=== PATIENT | male | born 1970 | race Caucasian/White ===

== ENCOUNTER 2016-09-27 14:42 | Emergency (ER) | payer MEDICARE, OTHER ==
[~2016-09-27] VITALS: Ht 165.1 cm; Wt 82.0 kg
[~2016-09-27 14:42] MED LIST: AZIT250T2 PO; BUPR300T51 PO; CEPHALEXIN PO; CMBV14.7IN IH; GABA300T24 PO; GFN600TCR PO; LOP50 PO; OMEP40CA25 PO; OXYBUTYNIN PO; PRZ2C PO; SYMINH IH; TOP25 PO; [UNRECOGNIZED DRUG - CODE] PO
[2016-09-27 14:47] VITALS: BP 146/107; PULSE 71; RESP 16; O2SAT 98
[2016-09-27] MEDS ORDERED: PANT40TA2 PO (15:21)
[2016-09-27] MEDS ORDERED: PROZ20 PO (15:21)
[2016-09-27] MEDS ORDERED: OXYB15TA PO (15:21)
[2016-09-27] MEDS ORDERED: PROP40TA5 PO (15:21)
[2016-09-27] MEDS ORDERED: [UNRECOGNIZED DRUG - OTHER] (15:21)
[2016-09-27] MEDS ORDERED: ALBU8.5H2 INHALATION (15:21)
--- NOTE | 2016-09-27 15:31 | ED.REPORT ---
HPI-Extremity Problem Upper Date of Service Sep 27, 2016 ED Provider: Luana Vega History of Present Illness: left elbow swollen for 3 weeks. denies trauma. rell is primary care in [facility] and I told him it was infected. went to [facility] and given augmentin.finished. feels increase in swelling today. right hand dominant Nursing Notes Stated Complaint: LEFT ELBOW INFECTED BURSITIS Chief Complaint: General Complaint Nursing Notes Reviewed: Yes Allergies: Coded Allergies: MUSHROOM (Verified Allergy, Severe, Anaphylaxis, 05/16/12) Shellfish (Verified Allergy, Severe, Anaphylaxis, 05/16/12) Scheduled Albuterol HFA (Proair HFA) 8.5 Gm Hfa.aer.ad 2 PUFFS INHALATION Q4H Bupropion-Expunged Drug, Do Not Renew! (Bupropion XL-Expunged Drug, Do Not Renew !) 300 Mg Tab.sr.24h 300 MG PO DAILY Fluoxetine (Prozac) 20 Mg Capsule 20 MG PO DAILY Oxybutynin Chloride ER (Oxybutynin Chloride ER) 15 Mg Tab.er.24 15 MG PO DAILY Pantoprazole DR (Protonix) 40 Mg Tablet 40 MG PO BID Propranolol HCl (Propranolol HCl) 40 Mg Tablet 40 MG PO BID Miscellaneous Medications ([medicinal cannibis]) Unknown Dose General Time Seen by MD: 15:30 Chief Complaint Elbow injury left Hx Obtained From: Patient Onset Occurred: More than a week ago... 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 bladder times 2 Smoking History Former Smoker (quit in 2001) Social History drinks beer Alcohol Use: 3-5 per day Drug Use: Denies drug use, THC Occupation lives with family, no work or school 09/27/2016 Ambulatory Status Independent Review of Systems Basic Review of Systems Eyes: Vision NL, No discharge : No dysuria, No frequency Psychiatric: Normal thought content Physical Exam Initial Vital Signs Vital Signs (First) Date Time Temp Pulse Resp B/P Pulse Ox O2 Delivery O2 Flow Rate FiO2 09/27/16 14:47 37.0 71 16 146/107 98 Room Air Initial VS: Reviewed, Vital signs abnormal General/Constitutional: Well-developed, Well-nourished Abdomen / GI: Soft, Non-tender, No guarding, No rebound, No distention Psychiatric: Mood/affect normal, Behavior normal, Normal thought content General/Constitutional: Awake, Alert, No acute distress, Well appearing, Well developed, Well hydrated Respiratory / Chest: Atraumatic, Breath sounds NL, Breath sounds = bilat, No respiratory distress Cardiovascular: Heart rate NL, Regular rhythm, Heart sounds NL, No gallop left arm has full range of motion with diffuse swelling fron elbow down. No erthyma or increased warmth. Interpretation & Diagnostics Interpretation & Diagnostics: us verbal report is negative for clot Lab Results Interpretation Result Diagram: 09/27/16 1615 09/27/16 1615 Test 09/27/16 16:15 White Blood Count 8.3th/mm3 (3.8-10.1) Red Blood Count 4.90mil/mm3 (4.40-5.80) Hemoglobin 15.8g/dL (13.8-17.2) Hematocrit 45.7% (41.0-50.0) Mean Corpuscular Volume 93.3fL (81-100) Mean Corpuscular Hemoglobin 32.2pg (27.0-35.0) Mean Corpuscular Hemoglobin Concent 34.6% (32.0-37.0) Red Cell Distribution Width 12.7% (12.3-15.4) Platelet Count 255bil/L (150-400) Neutrophils (%) (Auto) 52.4% (40-74) Lymphocytes (%) (Auto) 33.9% (14-46) Monocytes (%) (Auto) 10.7% (4-12) Eosinophils (%) (Auto) 2.4% (0-5) Basophils (%) (Auto) 0.4% (0-3) Erythrocyte Sedimentation Rate 1mm/hr (0-15) Sodium Level 136mEq/L (134-144) Potassium Level 4.0mEq/L (3.5-5.2) Chloride Level 100mEq/L (97-108) Carbon Dioxide Level 20mmol/L (18-29) Blood Urea Nitrogen 12mg/dL (6-24) Creatinine 0.88mg/dL (0.76-1.27) Estimat Glomerular Filtration Rate 99mL/min (>59) Glucose Level 111mg/dL (60-99) Calcium Level 9.7mg/dL (8.5-10.1) Total Bilirubin 0.7mg/dL (0.0-1.2) Aspartate Amino Transf (AST/SGOT) 33U/L (0-50) Alanine Aminotransferase (ALT/SGPT) 22U/L (0-44) Alkaline Phosphatase 91U/L (25-150) C-Reactive Protein 0.2mg/dL (0.0-0.5) Total Protein 7.2g/dL (6.4-8.4) Albumin 4.4g/dL (3.4-5.0) X-Ray Interpretation Xray Interpretation: PROCEDURE: X-RAY LEFT ELBOW COMPLETE, MINIMUM THREE VIEWS ([id number]) INDICATIONS: swelling PROCEDURE: X-RAY LEFT HAND, MINIMUM THREE VIEWS ([id number]) INDICATIONS: swelling TECHNIQUE: 4 views of the hand(s) acquired. COMPARISON: None. FINDINGS: Bones: No fractures or dislocations. Carpal bones are normally aligned. No suspicious bony lesions. Mild arthritis basilar joint of the thumb. Soft tissues: Small irregular calcification is present lateral to the scaphoid. IMPRESSION: 1. No acute bony abnormality seen. 2. Osteoarthritis basilar joint of the thumb. 3. No soft tissue foreign bodies identified. TECHNIQUE: 3 views of the elbow were acquired. COMPARISON: None. FINDINGS: Bones: No fractures or dislocations. No suspicious bony lesions. Soft tissues: There is apparent diffuse soft tissue swelling. No joint effusion seen. Fullness is also present over the olecranon process, possibly bursal effusion. IMPRESSION: 1. Question cellulitis for clinical correlation. 2. Possible olecranon bursal effusion. Dictated by: Leander Palacio M.D. on 09/27/2016 at 16:07 Approved by: Leander Palacio M.D. on 09/27/2016 at 16:09 Re-Eval/Medical Decision Med Decision/Clinical Course 45 year old male presents to the ER for evualation of left elbow swelling. Patient states he work that way about [address] Pang, saw [facility] in [facility] and was given antibiotics with no change in swelling. X-ray is negative for any bony damage. US does not show any clot formation. Labs are nomral including SEd and CRP. No sign of compartment syndrome or fracture. Exam is consistent with bursitis. Discharge & Departure Impression: Primary Impression: Olecranon bursitis of left elbow Disposition: Home Patient Instructions: Elbow Bursitis (ED), Elbow Bursitis Exercises (GEN) Additional Instructions: Your labs are normal. There is no sign of any infection. Your sed rate and crp are all normal. The x-ray shows arthritis in your thumb, your elbow looks good. Use ice to the elbow, 15 minutes on and 15 minutes off for 4 to 5 days. Use a sling for comfort. You need to take your arm out of the sling at least 3 times an hour and make circles and do wall walking. You can call ortho for followup. Expect this to take at least 2 weeks to resolve. The ultrasound does not show any sign of a clot. Use [id number] 800 mg 3 times a day for 5 days. Use omeprazole in the am and pm while taking omeprazole. Please call Dr. Sawant for a follow up appointment. Referrals: Vikas Sawant MD EDSupervising Provider for APC: Jose Vásquez MD copies to: Vikas Sawant MD, Sue ARNP Sep 27, 2016 15:31
--- NOTE | 2016-09-27 16:11 | DRSVH ---
PROCEDURE: X-RAY LEFT ELBOW COMPLETE, MINIMUM THREE VIEWS ([id number]) INDICATIONS: swelling TECHNIQUE: 3 views of the elbow were acquired. COMPARISON: None. FINDINGS: Bones: No fractures or dislocations. No suspicious bony lesions. Soft tissues: There is apparent diffuse soft tissue swelling. No joint effusion seen. Fullness is als o present over the olecranon process, possibly bursal effusion. IMPRESSION: 1. Question cellulitis for clinical correlation. 2. Possible olecranon bursal effusion. Dictated by: Leander Palacio M.D. on 09/27/2016 at 16:07 Approved by: Leander Palacio M.D. on 09/27/2016 at 16:09
--- NOTE | 2016-09-27 16:14 | DRSVH ---
PROCEDURE: X-RAY LEFT HAND, MINIMUM THREE VIEWS ([id number]) INDICATIONS: swelling TECHNIQUE: 4 views of the hand(s) acquired. COMPARISON: None. FINDINGS: Bones: No fractures or dislocations. Carpal bones are normally aligned. No suspicious bony lesions . Mild arthritis basilar joint of the thumb. Soft tissues: Small irregular calcification is present lateral to the scaphoid. IMPRESSION: 1. No acute bony abnormality seen. 2. Osteoarthritis basilar joint of the thumb. 3. No soft tissue foreign bodies identified. Dictated by: Leander Palacio M.D. on 09/27/2016 at 16:10 Approved by: Leander Palacio M.D. on 09/27/2016 at 16:12
[2016-09-27 16:30] LABS: BASOPHILS % (AUTO) 0.4 % (0-3); EOSINOPHILS % (AUTO) 2.4 % (0-5); MONOCYTES % (AUTO) 10.7 % (4-12); Mean Corpuscular Hemoglobin 32.2 pg (27.0-35.0); Mean Corpuscular Volume 93.3 fL (81-100); NEUTROPHILS % (AUTO) 52.4 % (40-74); Platelet Count 255 bil/L (150-400)
[2016-09-27 16:48] LABS: ERYTHROCYTE SEDIMENTATION RATE 1 mm/hr (0-15)
--- NOTE | 2016-09-27 20:48 | DRSVH ---
PROCEDURE: US VENOUS ARM DUPLEX UNILATERAL, LEFT INDICATIONS: swelling pain TECHNIQUE: Real-time imaging, as well as color and pulse Doppler interrogation, was performed of the left upper extremity deep veins from the inferior neck to the antecubital fossa. COMPARISON: None. FINDINGS: The internal jugular vein, visualized portions of the subclavian vein, axillary, and brach ial veins are free of intraluminal thrombus. Where physically possible, the veins are normally compr essible. Color and pulse Doppler demonstrate normal intraluminal flow, with expected phasicity and p ulsatility. Additional scanning of the cephalic and basilic veins of the superficial system demonstr ate normal compressibility, without thrombus. There is soft tissue edema in the region of the elbow IMPRESSION: No evidence of deep venous thrombosis. Dictated by: Hima Rios M.D. on 09/27/2016 at 20:44 Approved by: Hima Rios M.D. on 09/27/2016 at 20:46
== END 2016-09-27 17:48 | disposition home or self-care (01) ==
LOC: SED 14:42
DX: M70.22 Olecranon bursitis, left elbow (principal); Z87.891 Personal history of nicotine dependence; Z91.013 Allergy to seafood
CPT/HCPCS: 36415; 73080; 73130; 80053; 85025; 85651; 86140; 93971; 96372; 99284; J1885